=== PATIENT | female | born 1985 | race Caucasian/White ===

== ENCOUNTER → 2018-03-19 14:30 | Outpatient (CLI) | payer OTHER, SELFPAY ==
[2013-01-14 21:17] VITALS: BMI 26.7
[2018-03-20 15:28] LABS: Chlamydia Trachomatis by PCR Negative (Negative); Neisserai gonorrhoeae by PCR Negative (Negative); Probe Check PASS; Sample Adequacy Control PASS; Specimen Processing Control PASS
[2018-03-22 12:43] LABS: HPV Reflexed? NOT INDICATED
== END ==
PROVIDERS: Referring Provider Obstetrics & Gynecology; Visit Provider Obstetrics & Gynecology
DX: Z12.4 Encounter for screening for malignant neoplasm of cervix (principal); Z11.3 Encounter for screening for infections with a predominantly sexual mode of transmission
CPT/HCPCS: 87491; 87591; 87624; 88175; G0145

== ENCOUNTER → 2018-04-10 15:34 | Outpatient (CLI) | payer OTHER, SELFPAY ==
[2018-04-10 17:37] LABS: Color, Urine Yellow (Yellow); Glucose, Dipstick Normal (Normal); Ketone-Dipstick Negative (Negative); Leukocyte Esterase-Dipstick Negative /ul (Negative); Nitrite-Dipstick Negative (Negative); Occult Blood-Urine Negative /ul (Negative); Protein-Dipstick Negative (Negative); Specific Gravity, Urine 1.005 (1.002-1.030); Urine Bilirubin Dipstick Negative (Negative); Urine Clarity Clear (Clear); Urine Urobilinogen Normal (Normal)
[2018-04-10 17:48] LABS: Absolute Lymphocyte Count 1.89 X10^3/ul (0.83-4.51); Basophil# 0.02 X10^3/uL; Basophil% 0.2 % (0-1); Eosinophil# 0.12 X10^3/uL; Eosinophils% 1.4 % (0-5); Hematocrit 35.1 % (37-47); Hemoglobin 11.7 g/dl (12.0-15.0); Lymphocyte # 1.89 X10^3/ul (4.0); Lymphocyte % 21.8 % (19-41); Mean Corp Hgb Conc 33.3 g/gl (32-36); Mean Corpuscular Volume 92.9 fL (81-99); Mean Platelet Vol. 9.9 fl (6.2-12.0); Monocyte# 0.58 X10^3/uL; Monocyte% 6.7 % (0-10); Neutrophil # 6.03 X10^3/uL (2.7-7.7); Neutrophil % 69.8 % (47-70); Platelet Count 290 K/mm3 (150-450); RBC Distribution Width CV 13.8 % (11.6-14.6); RBC Distribution Width SD 45.3 fl (35.1-43.9); Red Blood Count 3.78 M/mm3 (4.2-5.4); White Blood Count 8.7 K/mm3 (4.4-11.0)
[2018-04-10 17:49] LABS: POSITIVE COUNT NO; POSITIVE DIFFERENTIAL NO; POSITIVE MORPHOLOGY NO
[2018-04-10 17:52] LABS: Thyroid Stim Hormone (TSH) 1.29 uIU/mL (0.358-3.74)
[2018-04-10 18:33] LABS: HIV - WCH Non-Reactive (Nonreactive); Rubella IgG 23.4 IU/mL
[2018-04-12 07:39] LABS: Prenatal RPR NONREACTIVE (NONREACTIVE)
[2018-04-12 11:09] LABS: HEPATITIS B SURFACE AG Negative (Negative); Hep C Antibodies <0.1 s/co ratio (0.0-0.9)
== END ==
PROVIDERS: Visit Provider Obstetrics & Gynecology
DX: Z34.82 Encounter for supervision of other normal pregnancy, second trimester (principal)
CPT/HCPCS: 36415; 81002; 84443; 85025; 86703; 86762; 86803; 87340

== ENCOUNTER → 2018-06-05 09:38 | Outpatient (CLI) | payer OTHER, SELFPAY ==
[2018-06-05 10:57] LABS: Hematocrit 34.7 % (37-47); Hemoglobin 11.6 g/dl (12.0-15.0); Mean Corp Hgb Conc 33.4 g/gl (32-36); Mean Corpuscular Hgb 31.3 pg (27.0-32.0); Mean Corpuscular Volume 93.5 fL (81-99); Mean Platelet Vol. 9.5 fl (6.2-12.0); Platelet Count 244 K/mm3 (150-450); RBC Distribution Width SD 47.6 fl (35.1-43.9); Red Blood Count 3.71 M/mm3 (4.2-5.4); White Blood Count 8.9 K/mm3 (4.4-11.0)
[2018-06-05 10:58] LABS: Scan Indicated on CBC? Y/N NO
[2018-06-05 11:07] LABS: Glucose Challenge Gest 1H 50g 63 mg/dL (70-140)
== END ==
PROVIDERS: Visit Provider Obstetrics & Gynecology
DX: Z34.83 Encounter for supervision of other normal pregnancy, third trimester (principal)
CPT/HCPCS: 36415; 82950; 85027

== ENCOUNTER → 2018-07-31 11:53 | Outpatient (CLI) | payer OTHER, SELFPAY ==
[2013-01-14 21:17] VITALS: BMI 26.7
== END ==
PROVIDERS: Visit Provider Obstetrics & Gynecology
DX: Z36.85 Encounter for antenatal screening for Streptococcus B (principal)
CPT/HCPCS: 87081

== ENCOUNTER 2018-08-20 20:50 | Inpatient (IN) | payer SELFPAY ==
[2013-01-14 21:17] VITALS: BMI 26.7
[2018-08-20 20:20] VITALS: BMI 28.5
--- NOTE | 2018-08-20 20:51 | PCM.HPOB.BLA ---
History and Physical Date of Admission: 08/20/18 OB HISTORY AND PHYSICAL EXAMINATION History of this : 33 yo female Ab1 with EDC 08/26/2018 by 9 weeks 6 days Ultrasound, presents to Labor and Delivery with CC of painful uterine contractions at 39 1/7 wk EGA care unremarkable. O positive Rubella immune GBS negative. Pertinent Past Medical History: h/o depression after last baby Allergies: NKDA Medications: During - Zoloft 50 mg tablet; 27 mg-0.8 mg tablet; Probiotic 3 billion cell capsule Review of Systems: painful contractions. PHYSICAL EXAMINATION General Appearance: 33 yo female with painful contractions. Vital Signs: AF, VSS Heart: RRR without rubs or gallops Lungs: CTA x 2 Breasts: deferred Abdomen: gravid Pelvis: Cervix: 5 cm /70/-2 Presentation: cephalic Station: Fetus: Size: AGA Movement: present Heart: 120-130 s avg variability. Accels to 160s Category I tracing with UCs q 3-10 mins. Impression /Plan: Intrauterine at 39 1/7 wk [id number] female. Early labor. Plans epidural. GBS negative. Admit for labor and delivery. See Progress Notes for Changes: Physician's Signature: Date:
--- NOTE | 2018-08-20 20:55 | HP.PCM_ITS ---
History and Physical Date of Admission: 08/20/18 OB HISTORY AND PHYSICAL EXAMINATION History of this : 33 yo female Ab1 with EDC 08/26/2018 by 9 weeks 6 days Ultrasound, presents to Labor and Delivery with CC of painful uterine contractions at 39 1/7 wk EGA care unremarkable. O positive Rubella immune GBS negative. Pertinent Past Medical History: h/o depression after last baby Allergies: NKDA Medications: During - Zoloft 50 mg tablet; 27 mg-0.8 mg tablet; Probiotic 3 billion cell capsule Review of Systems: painful contractions. PHYSICAL EXAMINATION General Appearance: 33 yo female with painful contractions. Vital Signs: AF, VSS Heart: RRR without rubs or gallops Lungs: CTA x 2 Breasts: deferred Abdomen: gravid Pelvis: Cervix: 5 cm /70/-2 Presentation: cephalic Station: Fetus: Size: AGA Movement: present Heart: 120-130 s avg variability. Accels to 160s Category I tracing with UCs q 3-10 mins. Impression /Plan: Intrauterine at 39 1/7 wk [id number] female. Early labor. Plans epidural. GBS negative. Admit for labor and delivery. See Progress Notes for Changes: Physician's Signature: Date:
[2018-08-20 21:39] LABS: Absolute Lymphocyte Count 2.15 X10^3/ul (0.83-4.51); Absolute Neutrophil Count 9.1 X10^3/uL (2.0-7.7); Basophil# 0.02 X10^3/uL; Basophil% 0.2 % (0-1); Eosinophils% 0.8 % (0-5); Hematocrit 35.7 % (37-47); Hemoglobin 12.3 g/dl (12.0-15.0); Lymphocyte # 2.15 X10^3/ul (4.0); Lymphocyte % 17.3 % (19-41); Mean Corp Hgb Conc 34.5 g/gl (32-36); Mean Corpuscular Hgb 31.7 pg (27.0-32.0); Mean Platelet Vol. 9.7 fl (6.2-12.0); Monocyte% 8.1 % (0-10); Neutrophil # 9.11 X10^3/uL (2.7-7.7); Neutrophil % 73.4 % (47-70); Platelet Count 224 K/mm3 (150-450); RBC Distribution Width CV 13.9 % (11.6-14.6); RBC Distribution Width SD 46.1 fl (35.1-43.9); Red Blood Count 3.88 M/mm3 (4.2-5.4); White Blood Count 12.4 K/mm3 (4.4-11.0)
[2018-08-20 21:40] LABS: POSITIVE COUNT NO; POSITIVE DIFFERENTIAL NO; POSITIVE MORPHOLOGY NO
[2018-08-20] MEDS: Lactated Ringers 1,000 ML 50 ML IV (22:07)
[2018-08-20] MEDS: Oxytocin 30 units/NS 500 ml 30 UNITS/500 ML IV.SOLN 334 UNITS IV (23:11)
--- NOTE | 2018-08-20 23:21 | PCM.OPRPT ---
Vaginal Delivery Maternal Presentation: Active Labor Amniotic Membrane Rupture Type: Artificial Amniotic Fluid Description: Moderate meconium Final ATIF: 08/26/18 Final ATIF Source: US <20 weeks Gestational age: 39 Weeks and 1 Days Date of Procedure: 08/20/18 Pre-Operative Diagnosis: 39 1/7 wk EGA labor Post-Operative Diagnosis: same Surgery/ Procedure Performed: Spontaneous Vaginal Delivery Type of Anesthesia: None Description of Procedure: of a mathis viable female over intact perineum, no epidural. Head delivered MIRELLA OP and nares bulb suctioned on perineum as pt continued to push for delivery of shoulders. No nuchal cord. infant to maternal abdomen with spont cry, vigorous. Dr Arana present for delivery d/t meconium stained fluid at [facility] just prior to delivery. RT also present. Routine cord blood for typing collected. Ap 8/9 PP exam; Abrasion at posterior introitus. No repair required no other lacerations. Placenta delivered by spont expulsion, expression 3V cord, intact with trailing membranes. meconium stained EBL 200 cc Pt and tolerated delivery well. To recovery , stable condition. Ray Sherrie and needle counts correct times two. Presentation: Vertex, MIRELLA Placental Delivery Description: Spontaneous, Expressed Placenta Disposition: [facility] Cord Vessel Description: 3 Vessels Cord Entanglement: None Estimated Blood Loss: 200 A gender: Female (1 minute): 8 (5 minute): 9 Episiotomy Description: None Laceration: None - abrasion Medications given after delivery: IV Pitocin Complications: None
--- NOTE | 2018-08-20 23:27 | PCM.DCVAG ---
Discharge Diet: No Restrictions Discharge Activity: May Shower, May Take a Tub Bath May resume sexual activity in: 4-6 weeks Additional Activity Instructions:: Nothing in the vagina for 4-6 weeks. You may return to work/school in 6 weeks. Additional Instructions: If you experience any of the following, contact your healthcare provider. Bleeding that soaks a pad every hour for 2 hours Fever 100.4 or higher Unrelieved abdominal pain Problems urinating (including inability to urinate or burning while urinating). Visual changes Severe headache Flu-like symptoms Pain or redness in one of both of your breasts Pain, warmth, tenderness or swelling in your legs, especially the calf area Frequent nausea and vomiting Symptoms of depression or anxiety If you experience any of the following, call 911 or go to the nearest Emergency Room. Chest pain Problems breathing Seizure activity Partial or complete paralysis of a body part, slurred speech, weakness or drooping of the face, or a sudden inability to walk or hold your balance Allergies/Adverse Reactions: Allergies No Known Allergies Allergy (Verified 08/20/18 20:21) Medications to take at Discharge Vits [Prenatabs FA ] 1 tablet PO DAILY 01/14/13 Sertraline HCl [Zoloft] 50 mg PO DAILY 08/20/18 Please Follow Up With: Wicho Carlos MD - [phone] When: Call to make an appointment with your doctor in 6 weeks. Primary Care Physician: Zenon Persaud MD [Primary Care Provider] - Test Results: Test results from this visit will be discussed in further detail at your follow-up appointment, if applicable. Proposed Discharge Date: 08/22/18
--- NOTE | 2018-08-20 23:28 | DCINST_ITS ---
Discharge Diet: No Restrictions Discharge Activity: May Shower, May Take a Tub Bath May resume sexual activity in: 4-6 weeks Additional Activity Instructions:: Nothing in the vagina for 4-6 weeks. You may return to work/school in 6 weeks. Additional Instructions: If you experience any of the following, contact your healthcare provider. * Bleeding that soaks a pad every hour for 2 hours * Fever 100.4 or higher * Unrelieved abdominal pain * Problems urinating (including inability to urinate or burning while urinating). * Visual changes * Severe headache * Flu-like symptoms * Pain or redness in one of both of your breasts * Pain, warmth, tenderness or swelling in your legs, especially the calf area * Frequent nausea and vomiting * Symptoms of depression or anxiety If you experience any of the following, call 911 or go to the nearest Emergency Room. * Chest pain * Problems breathing * Seizure activity * Partial or complete paralysis of a body part, slurred speech, weakness or drooping of the face, or a sudden inability to walk or hold your balance Allergies/Adverse Reactions: Allergies No Known Allergies Allergy (Verified 08/20/18 20:21) Medications to take at Discharge Vits [Prenatabs FA ] 1 tablet PO DAILY 01/14/13 Sertraline HCl [Zoloft] 50 mg PO DAILY 08/20/18 Please Follow Up With: Wicho Carlos MD - [phone] When: Call to make an appointment with your doctor in 6 weeks. Primary Care Physician: Zenon Persaud MD [Primary Care Provider] - Test Results: Test results from this visit will be discussed in further detail at your follow- up appointment, if applicable. Proposed Discharge Date: 08/22/18
[2018-08-20] MEDS: Oxytocin 30 units/NS 500 ml 30 UNITS/500 ML IV.SOLN 167 UNITS IV (23:45)
[2018-08-21] MEDS: 0.9% Saline Lock 10 ML Syringe IV
[2018-08-21 04:27] VITALS: BP 109/57; PULSE 58; RESP 16; TEMP 36.6; O2SAT 95
[2018-08-21] MEDS: Ibuprofen 600 MG Tablet PO ×2 (05:23→15:12)
[2018-08-21 08:10] VITALS: BP 104/57; PULSE 64; RESP 12; TEMP 36.4
--- NOTE | 2018-08-21 08:19 | PN.OBGYN_ITS ---
Subjective: Patient without complaints. Breast-feeding going well. Minimal vaginal bleeding. - Physical Exam Vital Signs Temp Pulse Resp BP Pulse Ox 98 F 58 L 16 109/57 L 95 08/21/18 04:27 08/21/18 04:27 08/21/18 04:27 08/21/18 04:27 08/21/18 04:27 Oxygen Delivery Method Room Air Weight: 187 lb 9.6 oz Body Mass Index (BMI) 28.5 Intake and Output for Last 24 Hours 08/19/18 08/20/18 08/21/18 23:59 23:59 23:59 Intake Total 1104 / 1104 Output Total 200 / 200 1200 / 1200 Balance 904 / 904 -1200 / -1200 Laboratory Tests Past 24 Hrs 08/20/18 08/20/18 21:09 21:09 WBC 12.4 H RBC 3.88 L Hgb 12.3 Hct 35.7 L MCV 92.0 MCH 31.7 MCHC 34.5 RDW 13.9 RDW Differential 46.1 H Plt Count 224 MPV 9.7 Immature Gran % (Auto) 0.200 Neut % (Auto) 73.4 H Lymph % (Auto) 17.3 L [place] % (Auto) 8.1 Eos % (Auto) 0.8 Baso % (Auto) 0.2 Absolute Neuts (auto) 9.1 H Absolute Lymphs (auto) 2.15 Total Counted Not Reportable Blood Type O POSITIVE Antibody Screen NEGATIVE Medical Necessity - Tobacco Use Smoking Status: Never smoker Assessment/Plan Doing well day #1 status post routine spontaneous vaginal delivery. Continuing present care.
[2018-08-21] MEDS: Acetaminophen 500 MG Tablet 1000 MG PO ×2 (08:23→17:45)
[2018-08-21] MEDS: Sertraline 50 MG Tablet PO (08:23)
[2018-08-21] MEDS: Prenatal Vits Tablet 1 TABLET PO (08:23)
[2018-08-21 12:00] VITALS: BP 99/48; PULSE 55; RESP 14; TEMP 36.3
[2018-08-21 15:24] VITALS: BP 113/60; PULSE 53; RESP 14; TEMP 36.1
[2018-08-21 21:20] VITALS: BP 110/58; PULSE 58; RESP 18; TEMP 36.3
[2018-08-22 00:07] VITALS: BP 102/55; PULSE 60; RESP 16; TEMP 36.9
[2018-08-22] MEDS: Ibuprofen 600 MG Tablet PO (02:19)
[2018-08-22 02:20] VITALS: BP 106/52; PULSE 55; RESP 18; TEMP 36.6
--- NOTE | 2018-08-22 07:56 | PCM.PN.OB ---
Subjective: PPD#1-2 Doing well. No concerns voiced. Baby nursing well. ready to go home today. - Physical Exam General: Alert, Oriented x3, Cooperative, No apparent distress HEENT: Atraumatic Neck: Supple Neurological: Cranial nerves II-XII grossly intact Psych/Mental Status: Normal Affect Vital Signs Temp Pulse Resp BP Pulse Ox 97.9 F 55 L 18 106/52 L 95 08/22/18 02:20 08/22/18 02:20 08/22/18 02:20 08/22/18 02:20 08/21/18 04:27 Oxygen Delivery Method Room Air Weight: 85.094 kg Body Mass Index (BMI) 28.5 Intake and Output for Last 24 Hours 08/20/18 08/21/18 08/22/18 23:59 23:59 23:59 Intake Total 1104 / 1104 Output Total 200 / 200 1200 / 1200 Balance 904 / 904 -1200 / -1200 Medical Necessity - Tobacco Use Smoking Status: Never smoker Assessment/Plan PPD#1-2 Stable pp. Dischg home today. RTO in 6 wk for pp check, prn sooner.
[2018-08-22 08:54] VITALS: BP 103/62; PULSE 62; RESP 16; TEMP 36.7; O2SAT 97
[2018-08-22] MEDS: Sertraline 50 MG Tablet PO (09:00)
[2018-08-22] MEDS: Prenatal Vits Tablet 1 TABLET PO (09:57)
[2018-08-22 10:46] VITALS: BP 103/63; PULSE 75; RESP 16; TEMP 36.5; O2SAT 96
== END 2018-08-22 11:30 | disposition home or self-care (01) | DRG 807 ==
LOC: WPOUT 20:58
PROVIDERS: Admitting Provider Obstetrics & Gynecology; Family Provider Family Medicine; PCP Family Medicine; Visit Provider Obstetrics & Gynecology
DX: O77.0 Labor and delivery complicated by meconium in amniotic fluid (principal); Z3A.39 39 weeks gestation of pregnancy; Z37.0 Single live birth
CPT/HCPCS: 59025; 59050; 85025; 86850; 86900; 99218; J7120; A4216; G0378

== ENCOUNTER → 2020-09-02 15:19 | Outpatient (CLI) | payer OTHER, SELFPAY ==
[2020-09-06 04:06] LABS: Chlamydia By Nucleic Acid AMP Negative (Negative)
[2020-09-08 13:44] LABS: HPV Reflexed? NOT INDICATED
[2020-09-09 14:58] LABS: Gonococcus By Nucleic Acid AMP Negative (Negative)
== END ==
PROVIDERS: PCP Family Medicine; Visit Provider Obstetrics & Gynecology
DX: Z12.4 Encounter for screening for malignant neoplasm of cervix (principal); Z11.3 Encounter for screening for infections with a predominantly sexual mode of transmission
CPT/HCPCS: 87491; 87591; 88175; G0145

== ENCOUNTER → 2020-09-08 10:04 | Outpatient (CLI) | payer OTHER, SELFPAY ==
[2020-09-08 10:24] LABS: Absolute Lymphocyte Count 1.85 X10^3/uL (0.83-4.51); Absolute Neutrophil Count 4.6 X10^3/uL (2.0-7.7); Basophil# 0.02 X10^3/uL; Basophil% 0.3 % (0-1); Eosinophil# 0.05 X10^3/uL; Eosinophils% 0.7 % (0-5); Hematocrit 37.6 % (37-47); Hemoglobin 12.3 g/dL (12.0-15.0); Lymphocyte # 1.85 X10^3/ul (0.83-4.51); Lymphocyte % 26.2 % (19-41); Mean Corp Hgb Conc 32.7 g/dL (32-36); Mean Corpuscular Hgb 29.9 pg (27.0-32.0); Mean Corpuscular Volume 91.5 fL (81-99); Mean Platelet Vol. 9.7 fl (6.2-12.0); Monocyte# 0.52 X10^3/uL; Monocyte% 7.4 % (0-10); NRBC Flagged by Analyzer 0 % (0-5); Platelet Count 290 K/mm3 (150-450); RBC Distribution Width CV 13.9 % (11.6-14.6); RBC Distribution Width SD 46.9 fl (35.1-43.9); Red Blood Count 4.11 M/mm3 (4.2-5.4); White Blood Count 7.1 K/mm3 (4.4-11.0)
[2020-09-08 11:25] LABS: HIV - WCH Non-Reactive (Nonreactive); Hepatitis B Surface Antigen Non-Reactive (Nonreactive); Hepatitis C Antibody Non-Reactive (Nonreactive); Rubella IgG Reactive (Nonreactive); Syphilis Antibodies Non-reactive
== END ==
PROVIDERS: PCP Family Medicine; Visit Provider Student in an Organized Health Care Education/Training Program
DX: Z34.81 Encounter for supervision of other normal pregnancy, first trimester (principal)
CPT/HCPCS: 36415; 85025; 86703; 86762; 86780; 86803; 87086; 87088; 87340

== ENCOUNTER → 2021-01-12 09:19 | Outpatient (CLI) | payer OTHER, SELFPAY ==
[2021-01-12 10:24] LABS: Hematocrit 36.1 % (37-47); Hemoglobin 12.3 g/dL (12.0-15.0); Mean Corp Hgb Conc 34.1 g/dL (32-36); Mean Corpuscular Hgb 32.3 pg (27.0-32.0); Mean Corpuscular Volume 94.8 fL (81-99); Mean Platelet Vol. 9.7 fl (6.2-12.0); Platelet Count 253 K/mm3 (150-450); RBC Distribution Width CV 13.5 % (11.6-14.6); RBC Distribution Width SD 46.4 fl (35.1-43.9); Red Blood Count 3.81 M/mm3 (4.2-5.4); White Blood Count 9.3 K/mm3 (4.4-11.0)
[2021-01-12 10:32] LABS: Glucose Challenge Gest 1H 50g 66 mg/dL (70-140)
== END ==
PROVIDERS: PCP Family Medicine; Visit Provider Obstetrics & Gynecology
DX: Z34.83 Encounter for supervision of other normal pregnancy, third trimester (principal)
CPT/HCPCS: 36415; 82950; 85027

== ENCOUNTER 2021-03-14 15:44 | Outpatient (CLI) | payer OTHER, SELFPAY | END 2021-03-14 23:59 | disposition home or self-care (01) | LOC: LABSPEC 15:44 | PROVIDERS: PCP Family Medicine; Visit Provider Obstetrics & Gynecology | DX: Z36.85 Encounter for antenatal screening for Streptococcus B (principal) | CPT/HCPCS: 87081 ==

== ENCOUNTER 2021-03-31 05:00 | Inpatient (IN) | payer SELFPAY, OTHER ==
--- NOTE | 2021-03-30 19:23 | HP.PCM_ITS ---
History and Physical Date of Admission: 03/31/21 ACOG ANTEPARTUM RECORD - HISTORY AND PHYSICAL (03/30/2021) Name: LYSSA BRIAN History of this : This is a 35 year old [id number] presents at 39 wks + 5 days gestation for primary section for breech presentation. Patient declines version attempt. OB Physician: Wicho Carlos MD 's Physician: [facility] ...................................................................... : 1985 Age: 35 Address: [address] [place] [address] Phone: ([phone]) [phone] Insurance Carrier: [facility] [phone] Emergency Contact: MARTI BRIAN/SPOUSE [phone] ...................................................................... Final ATIF: 04/02/21 By Ultrasound: 9 weeks 6 days PARITY: (G-Total Pregnancies P-Fullterm,Premature,Induced AB,Spont AB, Ectopics, Multiple,Living) ATIF CONFIRMATION: By LMP: 07/04/20 Final ATIF: 04/02/21 OB PROBLEM LIST: Epidural planned Genetic and carreier screening declined PP depression after second baby, with treatement. Treated during and after third Sister with dev delays/special needs (unknown cause) ALLERGIES: NKDA MEDICATIONS: cephalexin 500 mg tablet 1 PO QID 27 mg-0.8 mg tablet One pill by mouth once a day Probiotic 3 billion cell capsule One pill by mouth once a day SOCIAL HISTORY: Smoking - Never Alcohol Use - denies drinking Diet - balanced Diet, caffeine > 2 drinks per day and Water intake tries for 8- 10 cups daily. Lifestyle - moderate stress lifestyle and Exercise - Active w family. Enc to walk 20 min day. 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 Spouse-Sig Other Phone No - [phone] Children Name(s) - Roddy '13 Kamecca '16, Adriana(19) PRIOR DELIVERY HISTORY DEL DATE GEST LAB WT LB WT OZ TYPE ANES LABOR TX 01 Nov 12 7 0 0 0 Sab None No Jan 22 39 12 7 11 Vag Epidural No Aug 28 39 5 6 10 Vag None No Sep 24 38 5 6 13 Vag Epidural No ANTEPARTUM FLOW CHART VISIT GE RTC FU F F MD U U DATE WK MD WKS HT PN HR M SS BP ED WT MD GL D EF ST __ ____ ___ __ __ ___ __ __ __ ___ __ __ __ ___ __ Mar JMW 3 38 B + + 106/68 0 194 ne ne 2 50 -2 Mar JMW 1 37 + + 128/76 sl 189 - - 03 Mar JMW 1 37 V + + 112/64 0 189 - - 1 50 -2 15 Feb JMW 2 34 + + 102/60 0 183 - - Jan JMW 3 31 + + 126/78 0 182 - - 03 Feb 06 JMW 3 28 + + 108/68 0 179 - - 07 Jan 02 JMW 4 24 + + 98/62 0 173 - - 08 Nov 29 JMW 4 20 + + 108/68 0 167 - - 17 Oct 26 JM 3 17 - + + 99/64 0 161 - - cl 04 Oct 24 JMW 4 15 + + 106/68 0 159 - - 30 Aug 9 CM 5 + O 112/62 0 155 - - ANTEPARTUM NOTE(S): Mar 30 2021: FM well, declines version; wants primary Mar 24 2021: Ctxs-mild, Good FM, Mar 14 2021: doing well, GBS done Feb 23 2021: doing well, Good FM Feb 02 2021: Good FM, Feeling Well Jan 12 2021: CBC,OGCT Today, Good FM and Feeling Well Dec 16 2020: glucola/instructions given Nov 17 2020: Sono Today, Feeling Well Oct 26 2020: see prog note Oct 13 2020: Periodic Fatigue, Quickening Noted, Declines AFP Sep 08 2020: COMPREHENSIVE ANTEPARTUM NOTE(S): Mar 17 2021: H taken to OB. tkg Mar 14 2021: Lyssa is 37w2d here for PNV. Positive movement. No edema. She states she is doing well but is concerned if baby is head down for not. GBS today and LARC consent signed BR Feb 23 2021: Lyssa is 34w4d she is here for PNV. Positive movement. No edema. Doing well no complaints or concerns, BR Dec 16 2020: Pt her for . Glucoal instructions given. FM good. CMB Oct 26 2020: 17wk, add on visit for right sided pain that comes and goes. Denies fevers chills. No pain today, when had pain it was sharp. Pelvic exam w nl, CE closed. Neg CVA tenderness. Urine dip pos for UTI and ketones. Rx Keflex sent. JM Oct 26 2020: Patient has been having intermittent Rt sided pain that radiates to her back since Sunday. Patient states that she has had no bleeding or spotting no leaking of fluid with sx. Patient states that baby continues to move as it had been. Patient states that she has taken Tylenol for the discomf ort with little relief of sx. Last dose at 6a this morning. jlb Long dip done in office leuk-7+, nit Sep 14 2020: NOB TELEHEALTH VISIT, 25 MINUTE DURATION. Lyssa is a 35 year old A1 L3 with an ATIF of 04/02/2021, current GA is 11 w 3 d. 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 All of her children were delivered by ; past history updated. Delivery at [facility] with an epidural is planned, and she will breastfeed. Lyssa is an established patient with Sep 08 2020: 10/4w. ATIF FINAL 04/02/20 by 10w US. Denies genetic family hx, surjit barker will decline genetic testing as well. Has NOB nurse visit next week. Labs drawn. Would like to space next apt to 5-6w, okayed. Pt to notify if she has issues or concerns. CM Sep 02 2020: Lyssa presents here today for Missed Menses appointment. 35 y.o. G 5 P 3 with regular menses with approximate LMP of 07-04-20 lasting her average of 4-5 days. UPT is positive today in our Office. Presents at 8 weeks 4 days by LMP with an approximate ATIF of 04-11-21. Denies spotting/bleeding thus far in . Denies nausea or tender breasts. Currently taking an OTC Vitamin with Educ Sep 02 2020: Okay REVIEW OF SYSTEMS: GENERAL - Denies fever, or chills SKIN - Denies rash, new skin lesions, or change in moles EYES - Denies blurred vision, or change in visual acuity EARS - Denies ear pain, or difficulty hearing NOSE - Denies nasal congestion, discharge, or bleeding MOUTH - Denies sore throat, or difficulty swallowing NECK - Denies pain or swelling RESPIRATORY - Denies shortness of breath, cough, wheezing CARDIOVASCULAR - Denies palpitations, chest pain, orthopnea, PND, peripheral edema, syncope or claudication GASTROINTESTINAL - Denies nausea, vomiting, diarrhea, constipation, Denies abdominal pain, melena and or bright red blood GENITOURINARY - Denies dysuria, frequency of urination, urgency, or hesitancy MUSCULOSKELETAL - Denies joint or muscle pain, or back pain NEUROLOGICAL - Denies localized numbness, weakness, or tingling PSYCHIATRIC - Denies depression, anxiety, substance abuse or suicide attempts ENDOCRINE - Denies heat or cold intolerance, weight loss or gain, increasing thirst HEMATO-IMMUNOLOGIC - Denies easy bruising, bleeding, oral ulcerations or recurrent infections GENETICS SCREENING: Age 35+ years: No Thalassemia: No Neural Tube Defect: No Down Syndrome: No GUERRERO-SACHS: No Sickle Cell Disease: No Hemophilia: No Musc. Dystrophy: No Cystic Fibrosis: No-declines screening [place] Chorea: No Mental Retardation: No Fragile X: No Other genetic: No Other defects: No SABs/still births: No Drugs since LMP: No Comments: Sister with moderate mental and physical dissability unknown cause INFECTION HISTORY: High risk AIDS: No High risk Hepatitis: No Exposed to TB: No Exposed to Herpes: No Rash/viral illness since LMP: No History of STD: No MENSTRUAL HISTORY: *Menses Amount/Duration: 5 daysMenses Regularity: RegularFrequency: monthly* PAST SUMMARY: PARITY: 1. Total Pregnancies............ 5 2. Full Term Pregnancies........ 3 3. Premature.................... 0 4. Abortions - Induced.......... 0 5. Abortions - Spontaneous...... 1 6. Ectopics..................... 0 7. Multiple Births.............. 0 8. Living Children.............. 3 PAST #1: Date of :.................. 11/11/11 Gestation Weeks:................ 7 Length of labor(hours):......... 0 Sex:............................ Weight-lbs:............... 0 Weight-oz:................ 0 Type of Delivery:............... Sab Type of Anesthesia:............. None Place of Delivery:.............. [facility] Treatment of Labor?:.... No Comment: PAST #2: Date of :.................. 01/15/13 Gestation Weeks:................ 39 Length of labor(hours):......... 12 Sex:............................ M Weight-lbs:............... 7 Weight-oz:................ 11 Type of Delivery:............... Vag Type of Anesthesia:............. Epidural Place of Delivery:.............. [place] Treatment of Labor?:.... No Comment: PAST #3: Date of :.................. 10/03/15 Gestation Weeks:................ 38 Length of labor(hours):......... 5 Sex:............................ M Weight-lbs:............... 6 Weight-oz:................ 13 Type of Delivery:............... Vag Type of Anesthesia:............. Epidural Place of Delivery:.............. [facility] Treatment of Labor?:.... No Comment: POST PART DEPRESSION PAST #4: Date of :.................. 08/20/18 Gestation Weeks:................ 39 Length of labor(hours):......... 5 Sex:............................ F Weight-lbs:............... 6 Weight-oz:................ 10 Type of Delivery:............... Vag Type of Anesthesia:............. None Place of Delivery:.............. [place] Treatment of Labor?:.... No Comment: PHYSICAL EXAMINATION General Appearence: 35 yo female in no acute distress Vital Signs: AF, VSS Heart: RRR without rubs or gallops Lungs: CTA x 2 Breasts: deferred Abdomen: gravid Pelvis: Cervix: Presentation: cephalic Station: Fetus: Size: AGA Movement: present Heart: present LAB TEST(S) ORDERED SINCE:07/06/20 01/12/2021 GLUCOSE CHALLENGE GEST 1H 50G 01/12/2021 CBC-COMPLETE BLOOD CNT NO DIFF 09/10/2020 URINE CULTURE 09/09/2020 CHLAMYDIA/GC GOPI APTIMA 09/08/2020 RUBELLA IGG 09/08/2020 T AND S-NO CHARGE W/PNP 09/08/2020 PAP IG W/REFLEX HR HPV APTIMA 09/08/2020 L509.8000 09/08/2020 HIV - [facility] 09/08/2020 HEPATITIS C ANTIBODY 09/08/2020 HEPATITIS B SURFACE ANTIGEN 09/08/2020 CBC W/DIFF, AUTOMATED 03/17/2021 RULE OUT BETA STREP (GRP. B) == ==== Order Observation Description Value Ref_Range A* Site == ==== RULE OUT BETA S NOTE [facility] GLUCOSE CHALLEN NOTE [facility] GLUCOSE CHALLEN GLU GEST 50G 1H 66 mg/dL 70-140 L ML CBC-COMPLETE BL NOTE [facility] CBC-COMPLETE BL WBC 9.3 K/mm3 4.4-11.0 ML CBC-COMPLETE BL RBC 3.81 M/mm3 4.2-5.4 L ML CBC-COMPLETE BL HGB 12.3 g/dL 12.0-15.0 ML CBC-COMPLETE BL HCT 36.1 37-47 L ML CBC-COMPLETE BL MCV 94.8 fL 81-99 ML CBC-COMPLETE BL MCH 32.3 pg 27.0-32.0 H ML CBC-COMPLETE BL MCHC 34.1 g/dL 32-36 ML CBC-COMPLETE BL RDW CV 13.5 11.6-14.6 ML CBC-COMPLETE BL RDW SD 46.4 fl 35.1-43.9 H ML CBC-COMPLETE BL PLT 253 K/mm3 150-450 ML CBC-COMPLETE BL MPV 9.7 fl 6.2-12.0 ML URINE CULTURE NOTE [facility] PN N [facility]~[address] [place], [address]~ T AND AB SCREEN GEL NEGATIVE ML HEPATITIS C ANT NOTE [facility] HEPATITIS C ANT HEPATITIS C AB Non-Reactive Nonreactive ML Non Reactive: < 0.8 Equivocal: >/= 0.8 to < 1.0 Reactive: >/= 1.0 The CDC recommends that a reactive/equivocal HCV antibody result be followed up by the HCV Nucleic Acid Amplification test (291333) HEPATITIS B EDGARDO NOTE [facility] HEPATITIS B EDGARDO HEP B SURF AG Non-Reactive Nonreactive ML HIV - [facility] NOTE [facility] HIV - [facility] HIV Non-Reactive Nonreactive ML L509.8000 NOTE [facility] L509.8000 SYPHILIS ABS Non-reactive ML RUBELLA IGG NOTE [facility] RUBELLA IGG RUBELLA IGG Reactive Nonreactive ML Antibody Results Interpretation of Immune Status Non Reactive Presumed Non-Immune Equivocal Equivocal Reactive Presumed Immune CBC W/DIFF, AUT NOTE [facility] CBC W/DIFF, AUT WBC 7.1 K/mm3 4.4-11.0 ML CBC W/DIFF, AUT RBC 4.11 M/mm3 4.2-5.4 L ML CBC W/DIFF, AUT HGB 12.3 g/dL 12.0-15.0 ML CBC W/DIFF, AUT HCT 37.6 37-47 ML CBC W/DIFF, AUT MCV 91.5 fL 81-99 ML CBC W/DIFF, AUT MCH 29.9 pg 27.0-32.0 ML CBC W/DIFF, AUT MCHC 32.7 g/dL 32-36 ML CBC W/DIFF, AUT RDW CV 13.9 11.6-14.6 ML CBC W/DIFF, AUT RDW SD 46.9 fl 35.1-43.9 H ML CBC W/DIFF, AUT PLT 290 K/mm3 150-450 ML CBC W/DIFF, AUT MPV 9.7 fl 6.2-12.0 ML CBC W/DIFF, AUT NEUT% 65.0 47-70 ML CBC W/DIFF, AUT LY% 26.2 19-41 ML CBC W/DIFF, AUT MONO% 7.4 0-10 ML CBC W/DIFF, AUT EO% 0.7 0-5 ML CBC W/DIFF, AUT BASO% 0.3 0-1 ML CBC W/DIFF, AUT IG% 0.400 0.0-0.9 ML IG% - Immature Granulocytes (promyelocytes, myelocytes and metamyelocytes) > 1% indicates that a LEFT SHIFT is Present. CBC W/DIFF, AUT ABSOLUTE NEUT 4.6 X10 3/uL 2.0-7.7 ML CBC W/DIFF, AUT ABSOLUTE LYMPH 1.85 X10 3/uL 0.83-4.51 ML CBC W/DIFF, AUT NUCLEATED RBC 0 0-5 ML CHLAMYDIA/GC NA NOTE [facility] CHLAMYDIA/GC NA CHLAMY,NUC ACID Negative Negative [facility] CHLAMYDIA/GC NA GC BY NUC ACID Negative Negative [facility] Performed at: =[facility], [place] [id number] Refuse Laborer: Italia Jolly MD, Phone: [phone] PAP IG W/REFLEX NOTE [facility] PAP IG W/REFLEX DIAG Comment . [facility] NEGATIVE FOR INTRAEPITHELIAL LESION OR MALIGNANCY. PAP IG W/REFLEX ADEQ Comment . [facility] Satisfactory for evaluation. Endocervical and/or squamous metaplastic cells (endocervical component) are present. PAP IG W/REFLEX PERFORM Comment . [facility] Vani Andino Medical Staff Assistant (ASCP) This liquid based ThinPrep(R) pap test was screened with the use of an image guided system. PAP IG W/REFLEX COMM . . [facility] PAP IG W/REFLEX PAPSMR Comment . [facility] The Pap smear is a screening test designed to aid in the detection of premalignant and malignant conditions of the uterine cervix. It is not a diagnostic procedure and should not be used as the sole means of detecting cervical cancer. Both false-positive and false-negative reports do occur. PAP IG W/REFLEX HPV RFLX Comment . [facility] The HPV DNA reflex criteria were not met with this specimen result therefore, no HPV testing was performed. Performed at: [facility] [place] [id number] Refuse Laborer: Italia Jolly MD, Phone: [phone] Group B Beta Streptococcus is not isolated. Mixed Gram Positive Organisms [place] Count 11,000-25,000 MIXC Mixed contaminants. Submit a new specimen if indicated. O POSITIVE == ==== Impression /Plan: 39 wks + 4 days intrauterine with breech presentation for primary section. Preparations in progress for delivery.
[2021-03-31] VITALS (22 sets, daily range): BP systolic 92–114; BP diastolic 47–74; PULSE 51–74; RESP 11–18; TEMP 36.1–36.4; O2SAT 97–100; BMI 30.4
[2021-03-31] MEDS: Lactated Ringers 1,000 ML 999 ML IV (05:28)
[2021-03-31 05:43] LABS: Absolute Lymphocyte Count 1.87 X10^3/uL (0.83-4.51); Absolute Neutrophil Count 7.8 X10^3/uL (2.0-7.7); Basophil# 0.03 X10^3/uL; Basophil% 0.3 % (0-1); Eosinophil# 0.09 X10^3/uL; Eosinophils% 0.8 % (0-5); Hemoglobin 11.8 g/dL (12.0-15.0); Lymphocyte # 1.87 X10^3/ul (0.83-4.51); Lymphocyte % 17.6 % (19-41); Mean Corp Hgb Conc 33.7 g/dL (32-36); Mean Corpuscular Hgb 31.1 pg (27.0-32.0); Mean Corpuscular Volume 92.3 fL (81-99); Mean Platelet Vol. 9.5 fl (6.2-12.0); Monocyte% 7.5 % (0-10); NRBC Flagged by Analyzer 0 % (0-5); Neutrophil # 7.77 X10^3/uL (2.7-7.7); Neutrophil % 73.2 % (47-70); Platelet Count 295 K/mm3 (150-450); Red Blood Count 3.79 M/mm3 (4.2-5.4); White Blood Count 10.6 K/mm3 (4.4-11.0)
[2021-03-31] MEDS: Lactated Ringers 1,000 ML 150 ML IV (06:30)
[2021-03-31] MEDS: Acetaminophen 500 MG Tablet 1000 MG PO ×3 (07:09→19:52)
[2021-03-31] MEDS: Sodium Citrate/Citric Acid 30 ML UDC PO (07:10)
--- NOTE | 2021-03-31 07:11 | NURSING ---
bedside report given to Stef Bui RN and Lorraine Celis RN who are assuming care of pt at this time
[2021-03-31] MEDS: Cefazolin 2 GM in 0.9% Normal Saline 100 ML IV (07:25)
--- NOTE | 2021-03-31 07:31 | EX.PCM.OBRPT ---
Details Operative Information Date of Procedure: 03/31/21 Pre-Operative Diagnosis: Breech Presentation Post-Operative Diagnosis: Breech presentation Classification: Scheduled Procedure Type: low transverse Type of Anesthesia: Spinal (With Duramorph) Anesthesiologist: Vu Lozada Antibiotic Given: Ancef 2 grams IV x1 Drain: Engel to straight drain Estimated Blood Loss: 500 cc Fluids Replaced: Crystalloid Findings Description of Procedure: Surgeon: Wicho Carlos MD, FACOG Procedure: Primary low Transverse Cervical Caesarean Section Findings: Viable male with Apgars of 9/9 in complete breech presentation with clear amniotic fluid and normal three-vessel placenta. Indication: This is a 35-year-old who presents for her first at 39+ weeks gestation for breech presentation. care has otherwise been uneventful. The patient has been counseled regarding the risk and indications of this procedure including the possibility of bleeding infection and injury to surrounding structures such as bowel bladder. All questions were answered. Procedure: Patient was taken to the operating room where after spinal anesthesia was placed, the patient was prepped and draped in usual sterile fashion and a Engel catheter was placed. The abdomen was entered through a Pfannenstiel incision and peritoneum was entered bluntly. After developing a bladder flap on the lower uterine segment a low transverse incision was made on the uterus and breech was easily delivered onto the operative field nose mouth and oropharynx were bulb suctioned. A viable male infant was born with Apgars of 9/9. The infant was noted to cry move all extremities vigorously on the operative field. The umbilical cord was doubly clamped and ligated and handed to the nursery personnel who were present for the delivery. Placenta was delivered and noted to be 3 vessels and normal. Uterus was exteriorized and remaining placental tissue was removed. The uterus was then closed in 2 layers first with running locked 0 Vicryl suture followed by a second imbricating layer with 0 Vicryl suture. 0 Vicryl suture was then used in a horizontal mattress interrupted fashion to affect final hemostasis of the uterine incision line. Posterior aspect of the uterus was examined and a single large varicose vein in the right posterior cervix was noted to be bleeding. A single [id number] 3-0 Vicryl suture was placed which affected hemostasis. Normal fallopian tubes and ovaries were visualized and the uterus was returned to the pelvis. Hemostasis was noted and rectus abdominis muscles were reapproximated in the midline with interrupted Number 0 Vicryl suture in a horizontal mattress fashion. Fascia was closed with running Number 1 PDS Strata fix suture. Subcutaneous tissue was irrigated with copious amounts of saline solution and then closed with running 3-0 Vicryl suture. Skin was closed with 4-0 monocryl suture in a running subcuticular fashion. Steri strips and a Mepilex dressing were placed across the incision. The patient tolerated the procedure well and was taken to the recovery room in satisfactory condition. Sponge, needle, and instrument counts were all reportedly correct. EBL was less than 500 cc. Ancef 2 gms IV was given prior to the procedure. Presentation: Positive for Complete Breech Amniotic Fluid Description: Clear Placental Delivery Description: Spontaneous Placenta Disposition: [facility] Cord Vessel Description: 3 Vessels Cord Entanglement: None A Gender: Male (1 minute): 9 (5 minute): 9 Complications Risks of Surgery Discussed w/Patient: Bleeding, Infection and Injury to surrounding structure(s) including bowel and bladder Complications: None
[2021-03-31] MEDS: Oxytocin 30 units/NS 500 ml 30 UNITS/500 ML IV.SOLN 167 UNITS IV (08:55)
[2021-03-31] MEDS: Ketorolac 30 MG/ML Syringe IV ×3 (09:09→21:13)
[2021-03-31] MEDS: Lactated Ringers 1,000 ML 100 ML IV (12:03)
[2021-03-31] MEDS: Cefazolin 1 GM/50 ML BAG IV (15:03)
[2021-03-31] MEDS: 0.9% Saline Lock 10 ML Syringe IV (21:13)
[2021-04-01] VITALS (8 sets, daily range): BP systolic 89–115; BP diastolic 45–73; PULSE 55–82; RESP 16–18; TEMP 36.4–36.8; O2SAT 96–100
[2021-04-01] MEDS: Cefazolin 1 GM/50 ML BAG IV (00:20)
[2021-04-01] MEDS: 0.9% Saline Lock 10 ML Syringe IV ×2 (00:20→03:08)
[2021-04-01] MEDS: Ketorolac 30 MG/ML Syringe IV (03:07)
[2021-04-01] MEDS: Acetaminophen 500 MG Tablet 1000 MG PO ×4 (03:08→21:17)
[2021-04-01 07:04] LABS: Hematocrit 30.2 % (37-47); Hemoglobin 10.4 g/dL (12.0-15.0); Mean Corp Hgb Conc 34.4 g/dL (32-36); Mean Corpuscular Volume 92.9 fL (81-99); Mean Platelet Vol. 9.2 fl (6.2-12.0); Platelet Count 235 K/mm3 (150-450); RBC Distribution Width CV 13.1 % (11.6-14.6); RBC Distribution Width SD 43.5 fl (35.1-43.9); Red Blood Count 3.25 M/mm3 (4.2-5.4)
[2021-04-01] MEDS: Senna/Docusate Sodium 1 Tablet PO (09:25)
[2021-04-01] MEDS: Ibuprofen 600 MG Tablet PO ×3 (09:26→21:17)
--- NOTE | 2021-04-01 12:50 | PN.OBGYN_ITS ---
Subjective Subjective She is sore today. No flatus yet. Decreased appetite, but tolerates a regular diet. Minimal nausea, no vomiting. Denies heavy lochia. Objective Data Objective Data Vital Signs: Vital Signs Temp Pulse Resp BP Pulse Ox 97.8 F 82 16 115/69 100 04/01/21 08:30 04/01/21 08:30 04/01/21 08:30 04/01/21 08:30 04/01/21 08:30 Oxygen Delivery Method Room Air Weight: 88.36 kg Body Mass Index (BMI) 30.4 Intake & Output: Intake and Output for Last 24 Hours 03/30/21 03/31/21 04/01/21 23:59 23:59 23:59 Intake Total 3472.5 / 3472.5 50 / 50 Output Total 4625 / 4625 900 / 900 Balance -1152.5 / -1152.5 -850 / -850 Lab / Micro Data Result Diagrams: 04/01/21 06:55 Labs: Laboratory Results - last 24 hr 04/01/21 06:55: WBC 14.0 H, RBC 3.25 L, Hgb 10.4 L, Hct 30.2 L, MCV 92.9, MCH 32.0, MCHC 34.4, RDW Std Deviation 43.5, RDW Coeff of Vivienne 13.1, Plt Count 235, MPV 9.2 Micro: Microbiology 03/31/21 05:25 Nasal Secretion SARS-CoV-2 Antigen (Rapid) - Final Physical Exam Const alert, oriented x3 and no apparent distress Resp normal respiratory effort, normal air movement and clear to auscultation bilat erally Cardio regular rate, regular rhythm, S1 normal heart sound and S2 normal heart sound GI normal to inspection, nondistended, normoactive bowel sounds, soft to palpation, non-tender and non-distended GI Narrative: incisional dressing c/d/i Manual OB Exam: other lochia scant Uterus Palpation: uterus fundus firm Extremity no calf tenderness Extremity Narrative: trace b/l LE edema Assessment & Plan (1) delivery delivered: PLAN: POD#1 s/p PLTCS Rh positive Routine postop care
[2021-04-01] MEDS: oxyCODONE 5 MG Tablet PO ×2 (13:07→17:14)
--- NOTE | 2021-04-01 16:30 | CASEMGMT ---
Social Work Brief Assessment Labor and Delivery Unit Patient Address: [address] [place] [id number] Phone number: [phone] Date of Referral/Notification: 04/01/2021 Time of Referral: [phone] Referred By: Verbal notification by nursing staff Date of Intervention: 04/01/2021 Reason for Referral: Maternal history of depression Informant: Medical record and mother of baby (MOB) Lyssa Pendleton History: TAMEKA is a 35-year-old female from the [facility]. to the father of baby (FOB) Anthony Pendleton. MOB is 5, para 3 now 4 after delivering baby boy who is to be named Drake Pendleton. Drake was born weighing 7 pounds 10 ounces. Apgars 9 and 9. MOB and FOB have 3 older children: Lorena, born 08/20/2018; Coty, born September 2015; and Roddy, born 01/15/2013. TAMEKA reports that she developed depression after her second child was born and was on medication for about 6 months. During with Lorena, the MOB went on antidepressants prior to delivery, and MOB did not experience any symptoms. MOB reports there was a lot of crying going on during that timeframe after the second child. MOB denies any history of suicidal ideation, planning, intent or attempts. MOB reports during this she has been feeling good, and is on no type of medication. MOB denies any safety concerns at home or any history of domestic violence with the FOB. TAMEKA does have an eighth-grade education as is the norm in the [facility] culture. MOB reports to have support from family. No reported issues or history of substance use. Assessment: Met with MOB in room, introducing to self and social work role. MOB with good eye contact, bright affect, smiled at appropriate times during conversation. MOB reports to be feeling good emotionally, and reports that if symptoms of depression start to arise would be willing to get back on medication. Discussed MOB being at higher risk for mood and anxiety disorders based off of history of such. MOB describes the FOB is supportive and encouraging MOB to take care of her emotional health when needed. DARION has his own business, self-employed in the [employer] business. Therefore DARION does have some flexibility with work schedules, and is able to help at home when needed. MOB will have a helper however, from her 24-year-old [id number] reports this will also be helpful to the MOB. MOB reports to have all necessary supplies for the infant including safe sleep space and a car seat. MOB denies any concerns with home-going. Reports to feel connection with the baby, and is planning to breast-feed. There have been no voiced concerns by nursing staff regarding parent-child interactions or bonding. 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 Plan: MOB and will discharge home when medically stable. MOB has been given a packet on mood and anxiety disorders, including resources should MOB need extra support. No further needs requested or indicated. -ADRIA Rendon, FISHING BOAT CAPTAIN *This note was generated with [employer] dictation software. It may contain incorrect words, spelling, and punctuation that were not noted in review of the chart prior to signing*
[2021-04-02 01:39] VITALS: BP 111/67; PULSE 81; RESP 18
[2021-04-02] MEDS: Ibuprofen 600 MG Tablet PO ×2 (03:15→09:14)
[2021-04-02] MEDS: Acetaminophen 500 MG Tablet 1000 MG PO ×2 (03:15→09:14)
[2021-04-02] MEDS: oxyCODONE 5 MG Tablet PO ×3 (04:55→09:17)
--- NOTE | 2021-04-02 07:23 | PCM.DC.SUM ---
Providers Date of Admission: 03/31/21 Primary Care Physician: Dr. Zenon Persaud MD Reason For Visit: C SECTION/C SECTION DELIVERY Diagnosis Discharge Diagnosis (1) delivery delivered: Status: Acute Code(s): O82 - Encounter for delivery without indication Medications at Discharge Home Medications Prenatabs FA 1 tab PO DAILY 01/14/13 ibuprofen 800 mg PO Q8H PRN #30 tab 04/02/21 oxycodone 5 mg PO Q6H PRN 7 Days #12 cap 04/02/21 Hospital Course Operations section Procedures None Summary of Care Provided Hospital Course: 35yo G admitted at 39 5/7 weeks gestation for scheduled primary section for breech presentation. Her delivery was uncomplicated. She was out of bed, ambulating, passing flatus and voiding without difficulty on postop day #1. She was and discharged to home on postop day #2 with Hgb 10.4 postop. Physical Exam Const alert, oriented x3 and no apparent distress Resp normal respiratory effort, normal air movement and clear to auscultation bilaterally Cardio regular rate, regular rhythm, S1 normal heart sound and S2 normal heart sound GI normal to inspection, nondistended, normoactive bowel sounds, soft to palpation, non-tender and non-distended GI Narrative: incisional dressing c/d/i Manual OB Exam: other lochia scant Uterus Palpation: uterus fundus firm Extremity no calf tenderness Extremity Narrative: no lower extremity edema Weight / BMI Weight Weight: 88.36 kg Body Mass Index (BMI) 30.4 ABG / Lab / Microbiology Data Result Diagrams: 04/01/21 06:55 Microbiology: Microbiology 03/31/21 05:25 Nasal Secretion SARS-CoV-2 Antigen (Rapid) - Final D/C Instructions Discharge Diet: No restrictions Discharge Activity: Return to Normal Activity May resume sexual activity in: 4-6 weeks Lifting Restricted to (Lbs): 10 Call your doctor if you observe: Fever of 101 or Higher, Inability to urinate, Inability to have a bowel movement, Using more than 1 pad per hour, Chest pain, Increased palpitations (irregular heartbeat), Calf discomfort, Uncontrolled pain and - (Headache, vision changes) Remove Dressing in: 3 days Cleanse incision/area with: Soap & Water Please Follow Up With: Wicho Carlos MD When: 2 weeks for incision check Meaningful Use Info Meaningful Use Diagnoses (Choose all that apply): None applicable Discharge Plan Admission Admit Date/Time: 03/31/21 05:00 Primary Reason for Your Visit: delivery Attending Provider: Wicho Carlos Primary Care Provider: Zenon Persaud Discharge Orders/Prescriptions Prescriptions: New oxycodone 5 mg capsule 5 mg PO Q6H PRN (Reason: pain) 7 Days Qty: 12 RF: 0 ibuprofen 800 mg tablet 800 mg PO Q8H PRN (Reason: pain) Qty: 30 RF: 0 Continued Prenatabs FA 1 TABLET tablet 1 tab PO DAILY RF: 0 Referrals / Follow Up: Zenon Persaud MD [Primary Care Provider] - Disposition Disposition (needs filled in before D/C Order can be placed): Home, Self Care
[2021-04-02 07:44] VITALS: BP 92/63; PULSE 76; RESP 16; TEMP 36.4; O2SAT 97
[2021-04-02] MEDS: Senna/Docusate Sodium 1 Tablet PO (09:14)
--- NOTE | 2021-04-06 14:14 | NURSING ---
On follow up visit with Jelena mother feeling well, vaginal bleeding slowing, history of headache but no vision changes, felt her care was exceptional
== END 2021-04-02 11:30 | disposition home or self-care (01) | DRG 787 ==
PROVIDERS: Admitting Provider Obstetrics & Gynecology; PCP Family Medicine; Visit Provider Obstetrics & Gynecology
PROC: 10D00Z1 Extraction of Products of Conception, Low, Open Approach (ICD-10-PCS; CPT 59514; principal; 2021-03-31 07:15)
DX: O32.1XX0 Maternal care for breech presentation, not applicable or unspecified (principal); O99.43 Diseases of the circulatory system complicating the puerperium; I86.2 Pelvic varices; Z3A.39 39 weeks gestation of pregnancy; Z37.0 Single live birth
CPT/HCPCS: 59025; 59050; 85025; 85027; 86850; 86900; 86901; 87426; 99218; 99251; J7120; A4216; G0378; G0463